=== PATIENT | female | born 1995 | race Caucasian/White ===

== ENCOUNTER 2019-04-21 19:29 | Inpatient (IN) ==
[2019-04-21] MEDS ORDERED: cefTRIAXone 1,000 MG in Water for inj. (sterile) 10 ML IVP ONE (19:44)
[2019-04-21] MEDS ORDERED: Morphine Sulfate 2 MG/ML SYRINGE IVP STA (19:44)
[2019-04-21] MEDS ORDERED: 0.9 % Sodium Chloride 1,000 ML IVC ONE ×3 (19:44→21:01)
[2019-04-21] MEDS ORDERED: Ondansetron 4 MG/2 ML VIAL IVP ONE (19:45)
--- NOTE | 2019-04-21 19:47 | Emergency Department Note ---
Disposition Clinical Impression: Pyelonephritis Sepsis Qualifiers: Sepsis type: sepsis due to unspecified organism Sepsis acute organ dysfunction status: without acute organ dysfunction Qualified Code(s): A41.9 - Sepsis, unspecified organism Disposition: Admitted As Inpatient Condition: Fair Referrals: Larissa Calix CNP [Primary Care Provider] - Forms: ED Satisfaction Letter, Work/School Release Time of Disposition: 21:00 Abdominal Pain HPI - General Chief Complaint: ED Abdominal Pain Stated Complaint: shalini kidney pain Time Seen by Provider: 04/21/19 19:37 Source: patient Nursing Notes Reviewed: Yes Vital Signs Reviewed: Yes - History of Present Illness HPI Narrative: 21-year-old female presents emergency department with concern for bilateral flank pain. Patient states that this been going on for last couple days. She started taken past so [id number] medication because she thought this would help her with her UTI. Patient states that she is unable to eat, has nausea vomiting. Patient reports that the pain is worse on the right side and radiates down into the right lower quadrant abdomen. She does report fever as well as dysuria. Pain Scale: 0 - Related Data Home Medications Medication Instructions Recorded Confirmed Atorvastatin [Lipitor] 10 mg PO DAILY 02/18/18 04/21/19 Lisinopril [Zestril] 20 mg PO DAILY 02/18/18 04/21/19 Butalb/Acetaminophen/Caffeine 1 each PO Q8H PRN 04/21/19 04/21/19 [Fioricet 50-300-40 mg Capsule] hydroCHLOROthiazide 25 mg PO DAILY 04/21/19 04/21/19 [Hydrochlorothiazide] Allergies Allergy/AdvReac Type Severity Reaction Status Date / Time montelukast [From Singulair] Allergy Hives Verified 04/21/19 19:46 All systems ED: reviewed and negative except as stated. 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 Absent: scleral icterus - ENT ENT exam: mucous membranes moist - Neck Neck exam: Present: trachea midline - Chest Chest inspection: Present: symmetric chest wall rise - Respiratory Respiratory exam: Present: normal lung sounds bilaterally. Absent: respiratory distress, accessory muscle use - Cardiovascular Cardiovascular exam: Present: normal rhythm, tachycardia, normal heart sounds - Abdominal Exam Abdominal exam: Present: soft, tenderness. Absent: distention, guarding, r ebound, rigidity Abdominal tenderness: Present: RLQ, diffuse, moderate - Extremities Exam Extremities exam: Present: normal capillary refill - Back Exam Back exam: Present: CVA tenderness (R), CVA tenderness (L) - Neurological Exam Neurological exam: Present: alert, oriented X3 - Psychiatric Psychiatric exam: Present: normal affect, normal mood - Skin Skin exam: Present: warm, dry, intact, normal color. Absent: rash Course Vital Signs Temperature 100.2 F H 04/21/19 19:32 Pulse Rate 143 04/21/19 19:32 Respiratory Rate 16 04/21/19 19:32 Blood Pressure 134/95 04/21/19 19:32 O2 Sat by Pulse Oximetry 97 04/21/19 19:32 Temperature 99.6 F 04/21/19 20:58 Pulse Rate 127 04/21/19 20:58 Respiratory Rate 35 04/21/19 20:58 Blood Pressure 134/84 04/21/19 20:58 O2 Sat by Pulse Oximetry 96 04/21/19 20:58 Oxygen Delivery Oxygen Delivery Room Air Abdominal Pain - [facility] Narrative Medical decision making narrative: 21-year-old female presents emergency department with concern for bilateral flank pain with worsening flank pain on the right and right lower quadrant abdominal pain onset of nausea, vomiting, dysuria. Patient is evidence of urinary tract infection. Subsequent was called immediately she was tachycardic and febrile. Patient has a leukocytosis. She has evidence of urinary tract infection. CT scan of the abdomen and pelvis reveals concerns for pyelonephritis. No evidence of ureteral stones. After administration of fluids, antibiotics, patient admitted. No signs of end organ damage or hypotens ion at this time. Heart rate is responded to fluids. At time of admission, heart rate was 119 bpm. Chest X-Ray 04/21/19 19:38 IMPRESSION: No acute process. D/ / Krupa William MD / Krupa William MD Interpreting Provider: Krupa William MD Abdomen/Pelvis CT 04/21/19 19:46 IMPRESSION: 1. No evidence of renal stones. Inflammatory changes and perinephric stranding as well as mild hydronephrosis of the right kidney although no evidence of ureteric stone or UV junction stone. This may be related to a passed stone or acute pyelonephritis. 2. Normal appendix. 3. Diffuse fatty infiltration of liver. D/ / 04/21/2019 21:12:31 Krupa William MD / tiffanie Interpreting Provider: Krupa William MD - Lab Data Result diagrams: 04/21/19 19:50 04/21/19 19:50 Lab Results 04/21/19 04/21/19 04/21/19 Range/Units 19:47 19:47 19:50 WBC 21.8 H (4.3-11.1) K/mcL RBC 4.58 (3.82-4.97) M/mcL Hgb 13.7 (11.5-15.4) g/dL Hct 39.4 (35.3-44.9) % MCV 86.0 (83.0-100.0) fL MCH 29.9 (28.0-33.3) pg MCHC 34.8 (31.6-35.5) g/dL RDW 12.4 (11.5-14.5) % Plt Count 296 (140-400) K/mcL MPV 8.9 L (9.4-12.4) fL Immature Gran % 0.7 (0-4) % Seg Neutrophils % 73.6 % Lymphocytes % 9.6 % Monocytes % 15.8 % Eosinophils % 0.0 % Basophils % 0.3 % Neutrophils # 16.0 H (1.6-8.9) K/mcL Lymphocytes # 2.1 (0.6-4.6) K/mcL Monocytes # 3.5 H (0.0-1.3) K/mcL Eosinophils # 0.0 (0.0-0.6) K/mcL Basophils # 0.1 (0.0-0.2) K/mcL PT (9.4-12.1) Seconds INR Sodium (136-145) mEq/L Potassium (3.5-5.1) mEq/L Chloride (98-107) mEq/L Carbon Dioxide (23-29) mEq/L BUN (6-20) mg/dL Creatinine (0.60-1.20) mg/dL Est GFR ( Amer) (> 60) Est GFR (Non-Af Amer) (> 60) BUN/Creatinine Ratio (6-26) Glucose (70-105) mg/dL Calculated Osmolality (280-300) Lactic Acid (0.5-2.2) mmol/L Calcium (8.6-10.3) mg/dL Phosphorus (2.7-4.5) mg/dL Magnesium (1.6-2.6) mg/dL Total Bilirubin (0.3-1.0) mg/dL Direct Bilirubin (0.0-0.2) mg/dL Indirect Bilirubin (0.0-1.2) mg/dL AST (13-39) Units/L ALT (7-52) Units/L Alkaline Phosphatase (34-104) Units/L Troponin I (< 0.04) ng/mL Serum Total Protein (6.4-8.9) g/dL Albumin (3.5-5.7) g/dL Globulin (2.4-3.5) g/dL Albumin/Globulin Ratio (1.1-2.2) Urine Color [place] A (Yellow) Urine Clarity Turbid A (Clear) Urine pH 5.5 (5.0-8.0) pH Units Ur Specific [place] 1.019 (1.010-1.025) Urine Protein 100 H (Neg-Trace) mg/dL Urine Glucose (UA) Normal (Normal) mg/dL Urine Ketones Trace H (Negative) mg/dL Urine Blood Moderate H (Negative) Urine Nitrite Positive A (Negative) Urine Bilirubin Small H (Negative) Urine Urobilinogen 2.0 H (Normal) mg/dL Ur Leukocyte Esterase Large H (Negative) Urine Microscopic RBC 5-15 H (0-3) per hpf Urine Microscopic WBC TNTC H (0-3) per hpf Ur Squamous Epith Cells Many H (None-Few) per lpf Urine Bacteria Many H (None-Few) per hpf Hyaline Casts Few (None-Few) per lpf Ur Culture Indicated? YES A (NO) Urine Test Negative (Negative) 04/21/19 04/21/19 04/21/19 Range/Units 19:50 19:50 19:50 WBC (4.3-11.1) K/mcL RBC (3.82-4.97) M/mcL Hgb (11.5-15.4) g/dL Hct (35.3-44.9) % MCV (83.0-100.0) fL MCH (28.0-33.3) pg MCHC (31.6-35.5) g/dL RDW (11.5-14.5) % Plt Count (140-400) K/mcL MPV (9.4-12.4) fL Immature Gran % (0-4) % Seg Neutrophils % % Lymphocytes % % Monocytes % % Eosinophils % % Basophils % % Neutrophils # (1.6-8.9) K/mcL Lymphocytes # (0.6-4.6) K/mcL Monocytes # (0.0-1.3) K/mcL Eosinophils # (0.0-0.6) K/mcL Basophils # (0.0-0.2) K/mcL PT 14.5 H (9.4-12.1) Seconds INR 1.3 Sodium 135 L (136-145) mEq/L Potassium 3.4 L (3.5-5.1) mEq/L Chloride 101 (98-107) mEq/L Carbon Dioxide 23 (23-29) mEq/L BUN 11 (6-20) mg/dL Creatinine 0.81 (0.60-1.20) mg/dL Est GFR ( Amer) > 60 (> 60) Est GFR (Non-Af Amer) > 60 (> 60) BUN/Creatinine Ratio 14 (6-26) Glucose 114 H (70-105) mg/dL Calculated Osmolality 280 (280-300) Lactic Acid 1.5 (0.5-2.2) mmol/L Calcium 9.4 (8.6-10.3) mg/dL Phosphorus 2.4 L (2.7-4.5) mg/dL Magnesium 1.8 (1.6-2.6) mg/dL Total Bilirubin 1.6 H (0.3-1.0) mg/dL Direct Bilirubin 0.4 H (0.0-0.2) mg/dL Indirect Bilirubin 1.2 (0.0-1.2) mg/dL AST 14 (13-39) Units/L ALT 23 (7-52) Units/L Alkaline Phosphatase 79 (34-104) Units/L Troponin I < 0.03 (< 0.04) ng/mL Serum Total Protein 8.3 (6.4-8.9) g/dL Albumin 4.7 (3.5-5.7) g/dL Globulin 3.6 H (2.4-3.5) g/dL Albumin/Globulin Ratio 1.3 (1.1-2.2) Urine Color (Yellow) Urine Clarity (Clear) Urine pH (5.0-8.0) pH Units Ur Specific [place] (1.010-1.025) Urine Protein (Neg-Trace) mg/dL Urine Glucose (UA) (Normal) mg/dL Urine Ketones (Negative) mg/dL Urine Blood (Negative) Urine Nitrite (Negative) Urine Bilirubin (Negative) Urine Urobilinogen (Normal) mg/dL Ur Leukocyte Esterase (Negative) Urine Microscopic RBC (0-3) per hpf Urine Microscopic WBC (0-3) per hpf Ur Squamous Epith Cells (None-Few) per lpf Urine Bacteria (None-Few) per hpf Hyaline Casts (None-Few) per lpf Ur Culture Indicated? (NO) Urine Test (Negative) - EKG Data EKG attestation: Yes I reviewed and interpreted this EKG. EKG results narrative: 1950 Heart rate 144 bpm, NV interval 130 ms, QRS duration 85 ms, QTC 431 ms, normal axis. Sinus tachycardia with mild ST segment depressions in the inferior leads secondary to rate.
--- NOTE | 2019-04-21 19:47 | Emergency Department Note ---
Disposition Clinical Impression: Pyelonephritis Sepsis Qualifiers: Sepsis type: sepsis due to unspecified organism Sepsis acute organ dysfunction status: without acute organ dysfunction Qualified Code(s): A41.9 - Sepsis, unspecified organism Disposition: Admitted As Inpatient Condition: Fair Referrals: Larissa Calix CNP [Primary Care Provider] - Forms: ED Satisfaction Letter, Work/School Release Time of Disposition: 21:12 General Adult HPI - General Chief complaint: ED Abdominal Pain Stated complaint: shalini kidney pain Time Seen by Provider: 04/21/19 19:37 Source: patient Limitations: no limitations Nursing Notes Reviewed: Yes Vital Signs Reviewed: Yes - History of Present Illness Pain Scale: 0 - Related Data Home Medications Medication Instructions Recorded Confirmed Atorvastatin [Lipitor] 10 mg PO DAILY 02/18/18 04/21/19 Lisinopril [Zestril] 20 mg PO DAILY 02/18/18 04/21/19 Butalb/Acetaminophen/Caffeine 1 each PO Q8H PRN 04/21/19 04/21/19 [Fioricet 50-300-40 mg Capsule] hydroCHLOROthiazide 25 mg PO DAILY 04/21/19 04/21/19 [Hydrochlorothiazide] Allergies Allergy/AdvReac Type Severity Reaction Status Date / Time montelukast [From Singulair] Allergy Hives Verified 04/21/19 19:46 Past Medical History - Past Medical History Medical history: Reports: hypertension Surgical history: Reports: no surgical history Psychiatric history: Reports: no psych history 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 RADIOLOGY CT TECHNOLOGIST history - Social History Smoking Status: Never smoker Smokeless Tobacco Status: No Alcohol use: Reports: none Drug use: Reports: none Physical Exam - General Limitations: no limitations General appearance: alert Course Vital Signs Temperature 100.2 F H 04/21/19 19:32 Pulse Rate 143 04/21/19 19:32 Respiratory Rate 16 04/21/19 19:32 Blood Pressure 134/95 04/21/19 19:32 O2 Sat by Pulse Oximetry 97 04/21/19 19:32 Temperature 99.6 F 04/21/19 20:58 Pulse Rate 127 04/21/19 20:58 Respiratory Rate 35 04/21/19 20:58 Blood Pressure 134/84 04/21/19 20:58 O2 Sat by Pulse Oximetry 96 04/21/19 20:58 Oxygen Delivery Oxygen Delivery Room Air Medical Decision Making - Lab Data Result diagrams: 04/21/19 19:50 04/21/19 19:50 Lab Results 04/21/19 04/21/19 04/21/19 Range/Units 19:47 19:47 19:50 WBC 21.8 H (4.3-11.1) K/mcL RBC 4.58 (3.82-4.97) M/mcL Hgb 13.7 (11.5-15.4) g/dL Hct 39.4 (35.3-44.9) % MCV 86.0 (83.0-100.0) fL MCH 29.9 (28.0-33.3) pg MCHC 34.8 (31.6-35.5) g/dL RDW 12.4 (11.5-14.5) % Plt Count 296 (140-400) K/mcL MPV 8.9 L (9.4-12.4) fL Immature Gran % 0.7 (0-4) % Seg Neutrophils % 73.6 % Lymphocytes % 9.6 % Monocytes % 15.8 % Eosinophils % 0.0 % Basophils % 0.3 % Neutrophils # 16.0 H (1.6-8.9) K/mcL Lymphocytes # 2.1 (0.6-4.6) K/mcL Monocytes # 3.5 H (0.0-1.3) K/mcL Eosinophils # 0.0 (0.0-0.6) K/mcL Basophils # 0.1 (0.0-0.2) K/mcL PT (9.4-12.1) Seconds INR Sodium (136-145) mEq/L Potassium (3.5-5.1) mEq/L Chloride (98-107) mEq/L Carbon Dioxide (23-29) mEq/L BUN (6-20) mg/dL Creatinine (0.60-1.20) mg/dL Est GFR ( Amer) (> 60) Est GFR (Non-Af Amer) (> 60) BUN/Creatinine Ratio (6-26) Glucose (70-105) mg/dL Calculated Osmolality (280-300) Lactic Acid (0.5-2.2) mmol/L Calcium (8.6-10.3) mg/dL Phosphorus (2.7-4.5) mg/dL Magnesium (1.6-2.6) mg/dL Total Bilirubin (0.3-1.0) mg/dL Direct Bilirubin (0.0-0.2) mg/dL Indirect Bilirubin (0.0-1.2) mg/dL AST (13-39) Units/L ALT (7-52) Units/L Alkaline Phosphatase (34-104) Units/L Troponin I (< 0.04) ng/mL Serum Total Protein (6.4-8.9) g/dL Albumin (3.5-5.7) g/dL Globulin (2.4-3.5) g/dL Albumin/Globulin Ratio (1.1-2.2) Urine Color [place] A (Yellow) Urine Clarity Turbid A (Clear) Urine pH 5.5 (5.0-8.0) pH Units Ur Specific [place] 1.019 (1.010-1.025) Urine Protein 100 H (Neg-Trace) mg/dL Urine Glucose (UA) Normal (Normal) mg/dL Urine Ketones Trace H (Negative) mg/dL Urine Blood Moderate H (Negative) Urine Nitrite Positive A (Negative) Urine Bilirubin Small H (Negative) Urine Urobilinogen 2.0 H (Normal) mg/dL Ur Leukocyte Esterase Large H (Negative) Urine Microscopic RBC 5-15 H (0-3) per hpf Urine Microscopic WBC TNTC H (0-3) per hpf Ur Squamous Epith Cells Many H (None-Few) per lpf Urine Bacteria Many H (None-Few) per hpf Hyaline Casts Few (None-Few) per lpf Ur Culture Indicated? YES A (NO) Urine Test Negative (Negative) 04/21/19 04/21/19 04/21/19 Range/Units 19:50 19:50 19:50 WBC (4.3-11.1) K/mcL RBC (3.82-4.97) M/mcL Hgb (11.5-15.4) g/dL Hct (35.3-44.9) % MCV (83.0-100.0) fL MCH (28.0-33.3) pg MCHC (31.6-35.5) g/dL RDW (11.5-14.5) % Plt Count (140-400) K/mcL MPV (9.4-12.4) fL Immature Gran % (0-4) % Seg Neutrophils % % Lymphocytes % % Monocytes % % Eosinophils % % Basophils % % Neutrophils # (1.6-8.9) K/mcL Lymphocytes # (0.6-4.6) K/mcL Monocytes # (0.0-1.3) K/mcL Eosinophils # (0.0-0.6) K/mcL Basophils # (0.0-0.2) K/mcL PT 14.5 H (9.4-12.1) Seconds INR 1.3 Sodium 135 L (136-145) mEq/L Potassium 3.4 L (3.5-5.1) mEq/L Chloride 101 (98-107) mEq/L Carbon Dioxide 23 (23-29) mEq/L BUN 11 (6-20) mg/dL Creatinine 0.81 (0.60-1.20) mg/dL Est GFR ( Amer) > 60 (> 60) Est GFR (Non-Af Amer) > 60 (> 60) BUN/Creatinine Ratio 14 (6-26) Glucose 114 H (70-105) mg/dL Calculated Osmolality 280 (280-300) Lactic Acid 1.5 (0.5-2.2) mmol/L Calcium 9.4 (8.6-10.3) mg/dL Phosphorus 2.4 L (2.7-4.5) mg/dL Magnesium 1.8 (1.6-2.6) mg/dL Total Bilirubin 1.6 H (0.3-1.0) mg/dL Direct Bilirubin 0.4 H (0.0-0.2) mg/dL Indirect Bilirubin 1.2 (0.0-1.2) mg/dL AST 14 (13-39) Units/L ALT 23 (7-52) Units/L Alkaline Phosphatase 79 (34-104) Units/L Troponin I < 0.03 (< 0.04) ng/mL Serum Total Protein 8.3 (6.4-8.9) g/dL Albumin 4.7 (3.5-5.7) g/dL Globulin 3.6 H (2.4-3.5) g/dL Albumin/Globulin Ratio 1.3 (1.1-2.2) Urine Color (Yellow) Urine Clarity (Clear) Urine pH (5.0-8.0) pH Units Ur Specific [place] (1.010-1.025) Urine Protein (Neg-Trace) mg/dL Urine Glucose (UA) (Normal) mg/dL Urine Ketones (Negative) mg/dL Urine Blood (Negative) Urine Nitrite (Negative) Urine Bilirubin (Negative) Urine Urobilinogen (Normal) mg/dL Ur Leukocyte Esterase (Negative) Urine Microscopic RBC (0-3) per hpf Urine Microscopic WBC (0-3) per hpf Ur Squamous Epith Cells (None-Few) per lpf Urine Bacteria (None-Few) per hpf Hyaline Casts (None-Few) per lpf Ur Culture Indicated? (NO) Urine Test (Negative) Critical Care Time Critical Care Time: Yes Total Critical Care Time: 40 Attestation: Critical care performed: Time is exclusive of separately billable procedures. Time includes: direct patient care, patient reassessment, coordination of patient care, interpretation of data (laboratory data, radiology data, and respiratory data), review of patient's medical records, medical consultation and documentation of patient care. Procedures included in critical care time: Procedures excluded from critical care time: Attestation Statement - Attestation Attestation: I examined this patient and my medical decision-making was reviewed with the Resident Physician. I agree with the documented findings, disposition and treatment plan as described except to the extent set forth below. Patient to the ED with a chief complaint of a UTI. Patient states she took some [id number] medication but she is worse. Nausea vomiting. Pain across her back. On examination she is febrile and tachycardic. No abdominal tenderness. Bilateral CVA tenderness. Plan. Sepsis alert was called. A urinalysis was collected in a timely fashion. Labs being drawn at this time. We will check CT abdomen pelvis to rule out ureteral obstruction. Starting IV antibiotics promptly. Patient feeling better. Heart rate improved. She is provided IV hydration and IV antibiotics. She does meet sepsis criteria without shock. CT scan does not show any obstructive ureteral stones. She is admitted to the hospitalist service for pyelonephritis. Chest X-Ray 04/21/19 19:38 IMPRESSION: No acute process. D/ / Krupa William MD / Krupa William MD Interpreting Provider: Krupa William MD Abdomen/Pelvis CT 04/21/19 19:46 IMPRESSION: 1. No evidence of renal stones. Inflammatory changes and perinephric stranding as well as mild hydronephrosis of the right kidney although no evidence of ureteric stone or UV junction stone. This may be related to a passed stone or acute pyelonephritis. 2. Normal appendix. 3. Diffuse fatty infiltration of liver. D/ / Krupa William MD / Krupa William MD Interpreting Provider: Krupa William MD
[2019-04-21 20:07] LABS: Bilirubin,Urine Small (Negative); Blood,Urine Moderate (Negative); Clarity,Urine Turbid (Clear); Color,Urine Orange (Yellow); Glucose,Urine (UA) Normal (Normal); Ketones,Urine Trace mg/dL (Negative); Leukocyte Esterase,Urine Large (Negative); Nitrite,Urine Positive (Negative); PH,Urine 5.5 pH Units (5.0-8.0); Protein,Urine 100 mg/dL (Neg-Trace); Specific Gravity,Urine 1.019 (1.010-1.025)
[2019-04-21 20:14] LABS: Bacteria,Urine Many per hpf (None-Few); Hyaline Casts,Urine Few per lpf (None-Few); Squamous Epithelial Cell,Urine Many per lpf (None-Few); WBC,Urine TNTC per hpf (0-3)
[2019-04-21 20:20] LABS: Basophils # 0.1 K/mcL (0.0-0.2); Basophils % 0.3 %; Hematocrit 39.4 % (35.3-44.9); Hemoglobin 13.7 g/dL (11.5-15.4); Immature Granulocytes % 0.7 % (0-4); Lymphocytes # 2.1 K/mcL (0.6-4.6); Lymphocytes % 9.6 %; Mean Corpuscular HGB Conc 34.8 g/dL (31.6-35.5); Mean Corpuscular Hemoglobin 29.9 pg (28.0-33.3); Mean Platelet Volume 8.9 fL (9.4-12.4); Monocytes # 3.5 K/mcL (0.0-1.3); Monocytes % 15.8 %; Platelet Count 296 K/mcL (140-400); Red Blood Count 4.58 M/mcL (3.82-4.97); Red Cell Distribution Width 12.4 % (11.5-14.5); Segmented Neutrophils % 73.6 %; White Blood Count 21.8 K/mcL (4.3-11.1)
[2019-04-21 20:27] LABS: INR 1.3; Prothrombin Time 14.5 Seconds (9.4-12.1)
[2019-04-21 20:37] LABS: Alanine Aminotransferase 23 Units/L (7-52); Albumin 4.7 g/dL (3.5-5.7); Albumin/Globulin Ratio 1.3 (1.1-2.2); Alkaline Phosphatase 79 Units/L (34-104); Aspartate Amino Transferase 14 Units/L (13-39); BUN/Creatinine Ratio 14 (6-26); Bilirubin,Direct 0.4 mg/dL (0.0-0.2); Bilirubin,Indirect 1.2 mg/dL (0.0-1.2); Bilirubin,Total 1.6 mg/dL (0.3-1.0); Blood Urea Nitrogen 11 mg/dL (6-20); Calcium 9.4 mg/dL (8.6-10.3); Carbon Dioxide 23 mEq/L (23-29); Chloride 101 mEq/L (98-107); Globulin 3.6 g/dL (2.4-3.5); Glucose 114 mg/dL (70-105); Magnesium 1.8 mg/dL (1.6-2.6); Osmolality,Calculated 280 (280-300); Phosphorous 2.4 mg/dL (2.7-4.5); Potassium 3.4 mEq/L (3.5-5.1); Sodium 135 mEq/L (136-145); Total Protein 8.3 g/dL (6.4-8.9); Troponin I < 0.03 ng/mL (< 0.04); eGFR For African Americans > 60 (> 60); eGFR For Non-African Americans > 60 (> 60)
[2019-04-22] MEDS ORDERED: Naloxone 0.4 MG/ML INJ IVP PRN (00:02)
[2019-04-22] MEDS: Ketorolac 30 MG/ML VIAL IVP PRN ×3 (00:47→17:51)
--- NOTE | 2019-04-22 05:31 | Internal Med History&Physical ---
Date of Encounter: 04/22/19 Time of Encounter: 04:04 Internal Medicine - H&P: HPI Chief complaint: Pyelonephritis Admitted From: Emergency Dept Plans for Post Hospital Care: Home History of present illness: Ms. Mcfarlane is a 23 year old female Patient presented to emergency department with right-sided flank pain that r adiated to her groin. She states the pain started 3 days ago, and has progressively worsened. She denies history of kidney stones, but has had urinary tract infections in the past. She has never had pain like this before however. She has had some nausea and vomiting as well, particularly with ex ertion. She came to emergency department for further evaluation. Resume her vital signs: Patient's temperature was 100.2, pulse 143, respiratory rate 16, blood pressure 134/95, O2 saturation 97% on room air CBC notable for a white count of 21.8. BMP: Sodium 135, potassium 3.4. Glucose 114 Lactic acid 1.5 Phosphorus 2.4 Magnesium 1.8 Total bilirubin 1.6 Initial troponin undetectable Chest x-ray: No acute process Abdominal CT IMPRESSION: 1. No evidence of renal stones. Inflammatory changes and perinephric stranding as well as mild hydronephrosis of the right kidney although no evidence of ureteric stone or UV junction stone. This may be related to a passed stone or acute pyelonephritis. 2. Normal appendix. 3. Diffuse fatty infiltration of liver. In the emergency room patient had urine and blood cultures drawn. She was given ceftriaxone and a total of 3 L of IV fluids. She is also given a total of 8 mg of IV morphine and 8 mg of Zofran. She was admitted to the hospital for further management. Plan my evaluation, patient is resting comfortably in the hospital bed in no acute distress. She denies chest pain, diarrhea and constipation. She has had right-sided flank and lower abdominal to groin pain with associated nausea and vomiting. Upon arrival to the floor her pain was still uncontrolled, but she responded well to 30 mg of IV Toradol. She is much more comfortable now. She denies significant past family medical history. She is full code. Her is at bedside. Past Med Surg Social Fam HX - Past Medical History Medical history: hypertension Psychiatric history: no psych history - Past Surgical History Surgical History: no surgical history - Social History Smoking Status: Never smoker Smokeless Tobacco Status: No Alcohol use: none Drug use: none Internal Medicine - H&P: Meds Atorvastatin [Lipitor] 10 mg PO DAILY 02/18/18 [History] Lisinopril [Zestril] 20 mg PO DAILY 02/18/18 [History] Butalb/Acetaminophen/Caffeine [Fioricet 50-300-40 mg Capsule] 1 each PO Q8H PRN 04/21/19 [History] hydroCHLOROthiazide [Hydrochlorothiazide] 25 mg PO DAILY 04/21/19 [History] Allergy/AdvReac Type Severity Reaction Status Date / Time montelukast [From Singulair] Allergy Hives Verified 04/21/19 19:46 All Systems PM: A 10-system review of systems was performed and is negative for pertinent findin gs except as documented above in the HPI. - Constitutional Vitals: Temp Pulse Resp BP Pulse Ox 98.2 F 117 17 110/75 99 04/22/19 03:06 04/22/19 03:06 04/22/19 03:06 04/22/19 03:06 04/22/19 03:06 General appearance: Present: cooperative, A&O X 3, pleasant, no acute distress, answers questions appropriately Exam: - - Head Head exam: Present: normal inspection - Eye Eye exam: Present: EOMI, normal appearance - Respiratory Respiratory exam: Present: CTAB. Absent: rales, respiratory distress, rhonchi, wheezes - Cardiovascular Cardiovascular exam: Present: RRR. Absent: diastolic murmur, systolic murmur - GI/Abdominal GI/Abdominal exam: Present: normal bowel sounds, soft, tenderness Additional comments: Right-sided flank and abdominal tenderness with palpation - Extremities Exam Extremities exam: Present: warm, radial pulses palpable and symmetrical. Absent: calf tenderness, pedal edema, tenderness - Neurological Exam Neurological exam: Present: no focal deficits, strengths equal and symetr throughout. Absent: motor sensory deficit, facial droop, speech deficit - Skin Skin exam: Present: dry, normal color, warm Internal Med - H&P Results - Labs CBC & Chem 7: 04/21/19 19:50 04/21/19 19:50 Labs: Short CBC 04/21/19 Range/Units 19:50 WBC 21.8 H (4.3-11.1) K/mcL Hgb 13.7 (11.5-15.4) g/dL Hct 39.4 (35.3-44.9) % Plt Count 296 (140-400) K/mcL Neutrophils # 16.0 H (1.6-8.9) K/mcL BMP 04/21/19 19:50 Sodium 135 L Potassium 3.4 L Chloride 101 Carbon Dioxide 23 BUN 11 Creatinine 0.81 Glucose 114 H Calcium 9.4 Cardiac Enzymes 04/21/19 Range/Units 19:50 Troponin I < 0.03 (< 0.04) ng/mL Liver Function 04/21/19 Range/Units 19:50 Total Bilirubin 1.6 H (0.3-1.0) mg/dL Direct Bilirubin 0.4 H (0.0-0.2) mg/dL AST 14 (13-39) Units/L ALT 23 (7-52) Units/L Alkaline Phosphatase 79 (34-104) Units/L Albumin 4.7 (3.5-5.7) g/dL Urine 04/21/19 Range/Units 19:47 Urine Color [place] A (Yellow) Urine Clarity Turbid A (Clear) Urine pH 5.5 (5.0-8.0) pH Units Ur Specific [place] 1.019 (1.010-1.025) Urine Protein 100 H (Neg-Trace) mg/dL Urine Glucose (UA) Normal (Normal) mg/dL - Impressions ITS Impressions Chest X-Ray 04/21/19 19:38 IMPRESSION: No acute process. D/ / Krupa William MD / Krupa William MD Interpreting Provider: Krupa William MD Abdomen/Pelvis CT 04/21/19 19:46 IMPRESSION: 1. No evidence of renal stones. Inflammatory changes and perinephric stranding as well as mild hydronephrosis of the right kidney although no evidence of ureteric stone or UV junction stone. This may be related to a passed stone or acute pyelonephritis. 2. Normal appendix. 3. Diffuse fatty infiltration of liver. D/ / 04/21/2019 21:12:31 Krupa William MD / [email or web address] Interpreting Provider: Krupa William MD - Assessment and Plan (1) Sepsis Current Visit: Yes Status: Acute Assessment and plan: Patient's vital signs initially demonstrated elevated temperature and pulse. She also elevated white count and a source being her urinary tract. Her body temperature has improved to 98.2, and her pulse is also improved but still elevated at 117. Lactic acid elevated at 1.5 Continue IV fluid hydration Treating pyelonephritis as below Qualifiers: Sepsis type: sepsis due to unspecified organism Sepsis acute organ dysfunction status: without acute organ dysfunction Qualified Code(s): A41.9 - Sepsis, unspecified organism (2) Pyelonephritis Current Visit: Yes Status: Acute Assessment and plan: Patient's abdominal CT demonstrated inflammatory changes and perinephric stranding and hydronephrosis of the right kidney. There is no obstruction seen. Started on ceftriaxone, blood and urine cultures obtained. Follow-up blood and urine cultures Continue IV ceftriaxone IV Toradol for pain IV fluid hydration (3) Hypophosphatemia Current Visit: Yes Status: Acute Assessment and plan: Mildly low phosphorus level at 2.4. Replete Repeat phosphorus level (4) Nausea and vomiting Current Visit: Yes Status: Acute Assessment and plan: Now improved, patient responded well to IV Zofran. Continue IV Zofran as needed Qualifiers: Vomiting type: unspecified Vomiting Intractability: non-intractable Qualified Code(s): R11.2 - Nausea with vomiting, unspecified (5) Elevated bilirubin Current Visit: Yes Status: Acute Assessment and plan: Patient's bilirubin elevated at 1.6. Patient's other liver enzymes within normal limits. She denies history of liver disease. No jaundice on exam. Repeat a.m. labs Continue to monitor (6) DVT prophylaxis Current Visit: Yes Status: Acute Assessment and plan: SCDs - Time Spent With Patient Total time spent is greater than 50% in coordination of care (as documented) at patient's floor/unit and/or counseling patient: Greater than 35 minutes
[2019-04-22 05:52] LABS: Hematocrit 35.7 % (35.3-44.9); Hemoglobin 12.3 g/dL (11.5-15.4); Mean Corpuscular HGB Conc 34.5 g/dL (31.6-35.5); Mean Corpuscular Hemoglobin 29.8 pg (28.0-33.3); Mean Corpuscular Volume 86.4 fL (83.0-100.0); Mean Platelet Volume 8.6 fL (9.4-12.4); Platelet Count 200 K/mcL (140-400); Red Blood Count 4.13 M/mcL (3.82-4.97); Red Cell Distribution Width 12.7 % (11.5-14.5); White Blood Count 19.5 K/mcL (4.3-11.1)
[2019-04-22 06:10] LABS: BUN/Creatinine Ratio 10 (6-26); Blood Urea Nitrogen 9 mg/dL (6-20); Calcium 8.2 mg/dL (8.6-10.3); Carbon Dioxide 25 mEq/L (23-29); Chloride 106 mEq/L (98-107); Glucose 121 mg/dL (70-105); Osmolality,Calculated 286 (280-300); Potassium 3.8 mEq/L (3.5-5.1); Sodium 138 mEq/L (136-145); eGFR For African Americans > 60 (> 60); eGFR For Non-African Americans > 60 (> 60)
[2019-04-22 06:11] LABS: Albumin 3.7 g/dL (3.5-5.7); Albumin/Globulin Ratio 1.5 (1.1-2.2); Bilirubin,Direct 0.7 mg/dL (0.0-0.2); Bilirubin,Indirect 1.2 mg/dL (0.0-1.2); Bilirubin,Total 1.9 mg/dL (0.3-1.0); Globulin 2.5 g/dL (2.4-3.5); Total Protein 6.2 g/dL (6.4-8.9)
[2019-04-22] MEDS: Acetaminophen 325 MG TABLET PO PRN ×2 (06:18→16:27)
[2019-04-22] MEDS: 0.9 % Sodium Chloride 1,000 ML IVC SCH ×4 (06:19→23:20)
[2019-04-22] MEDS: Ondansetron 4 MG/2 ML VIAL IVP PRN ×3 (07:35→23:20)
[2019-04-22] MEDS ORDERED: cefTRIAXone 1,000 MG in Water for inj. (sterile) 10 ML IVP ONE (08:54)
[2019-04-22] MEDS ORDERED: cefTRIAXone 1,000 MG in Water for inj. (sterile) 10 ML IVP SCH (09:00)
--- NOTE | 2019-04-22 11:35 | Event Note ---
Date of Encounter: 04/22/19 Time of Encounter: 09:45 History of physical noted. Patient was seen this morning. She was admitted for pyelonephritis with right CVA tenderness and being managed with IV fluids, Rocephin and Tylenol. Urine cultures are pending. She also has a positive Corrales sign and ultrasound of the abdomen is ordered for tomorrow. She is still febrile and has tachycardia. Her leukocytosis is improving and recheck CBC tomorrow.
[2019-04-22 11:58] LABS: Acinetobacter baumannii by PCR Not Detected (Not Detect); Candida albicans by PCR Not Detected (Not Detect); Candida glabrata by PCR Not Detected (Not Detect); Candida krusei by PCR Not Detected (Not Detect); Candida parapsilosis by PCR Not Detected (Not Detect); Candida tropicalis by PCR Not Detected (Not Detect); Enterobacter cloacae Cmplx PCR Not Detected (Not Detect); Enterococcus by PCR Not Detected (Not Detect); Escherichia coli by PCR DETECTED (Not Detect); Klebsiella oxytoca by PCR Not Detected (Not Detect); Klebsiella pneumoniae by PCR Not Detected (Not Detect); Proteus by PCR Not Detected (Not Detect); Pseudomonas aeruginosa by PCR Not Detected (Not Detect); Serratia marcescens by PCR Not Detected (Not Detect); Staphylococcus aureus by PCR Not Detected (Not Detect); Staphylococcus by PCR Not Detected (Not Detect); Streptococcus agalactiae(B)PCR Not Detected (Not Detect); Streptococcus by PCR Not Detected (Not Detect); Streptococcus pneumoniae PCR Not Detected (Not Detect); Streptococcus pyogenes (A) PCR Not Detected (Not Detect); blaKPC Carbapenem-Resist Gene Not Detected (Not Detect); mecA Methicillin-Resist Gene Not Detected (Not Detect); vanA/B Vancomycin-Resist Genes Not Detected (Not Detect)
--- NOTE | 2019-04-22 16:09 | Electrocardiograph Report ---
[address] [address] Test Date: 2019-04-21 Pat Name: Ana Mcfarlane Department: EXAM3 Room: 3A23 Gender: F Cake Icer: : 1995 Requested By: Toney Cho Order Number: [id number] Reading MD: Nimesh Blanchard Measurements Intervals [place] Rate: 144 P: 78 NV: 130 QRS: 8 QRSD: 85 T: -41 QT: 278 QTc: 431 Interpretive Statements Sinus tachycardia Probable left atrial enlargement Borderline repolarization abnormality Electronically Signed On 04-22-2019 16:07:46 EDT by Nimesh Blanchard
[2019-04-22] MEDS ORDERED: Melatonin 3 MG TABLET PO PRN (23:52)
[2019-04-23] MEDS: Ketorolac 30 MG/ML VIAL IVP PRN ×4 (03:23→22:06)
[2019-04-23] MEDS: Acetaminophen 325 MG TABLET PO PRN ×2 (05:03→20:01)
[2019-04-23 05:24] LABS: Hematocrit 29.6 % (35.3-44.9); Mean Corpuscular HGB Conc 34.5 g/dL (31.6-35.5); Mean Corpuscular Hemoglobin 29.7 pg (28.0-33.3); Mean Corpuscular Volume 86.3 fL (83.0-100.0); Mean Platelet Volume 9.3 fL (9.4-12.4); Platelet Count 164 K/mcL (140-400); Red Blood Count 3.43 M/mcL (3.82-4.97); Red Cell Distribution Width 12.7 % (11.5-14.5); White Blood Count 15.6 K/mcL (4.3-11.1)
[2019-04-23 05:25] LABS: Hemoglobin 10.2 g/dL (11.5-15.4)
[2019-04-23 05:49] LABS: Albumin 3.3 g/dL (3.5-5.7); Albumin/Globulin Ratio 1.2 (1.1-2.2); Bilirubin,Direct 0.6 mg/dL (0.0-0.2); Bilirubin,Indirect 0.8 mg/dL (0.0-1.2); Bilirubin,Total 1.4 mg/dL (0.3-1.0); Globulin 2.7 g/dL (2.4-3.5)
[2019-04-23 05:50] LABS: BUN/Creatinine Ratio 9 (6-26); Blood Urea Nitrogen 6 mg/dL (6-20); Carbon Dioxide 21 mEq/L (23-29); Chloride 105 mEq/L (98-107); Glucose 116 mg/dL (70-105); Osmolality,Calculated 283 (280-300); Sodium 137 mEq/L (136-145); eGFR For African Americans > 60 (> 60); eGFR For Non-African Americans > 60 (> 60)
[2019-04-23] MEDS: Ondansetron 4 MG/2 ML VIAL IVP PRN ×2 (07:27→15:57)
[2019-04-23] MEDS: cefTRIAXone 2,000 MG in Water for inj. (sterile) 20 ML IVP SCH (07:27)
[2019-04-23] MEDS: 0.9 % Sodium Chloride 1,000 ML IVC SCH ×2 (10:22→20:11)
--- NOTE | 2019-04-23 11:52 | Internal Med Progress Note ---
Hospitalist Progress Note - Encounter Date of Encounter: 04/23/19 Time of Encounter: 11:51 - Subjective Interval History: Patient was seen and examined at bedside. Patient reports of right-sided upper quadrant pain with right-sided flank pain. Pain is 5-6 out of 10 in severity, achy, nonradiating, and without any other limiting and relieving factors. Patient denied any nausea and vomiting. Patient reports fever overnight. But from this he denied any acute issues and concerns. - Exam Vitals: Temp Pulse Resp BP Pulse Ox 98.1 F 95 15 127/84 97 04/23/19 10:39 04/23/19 10:39 04/23/19 10:39 04/23/19 10:39 04/23/19 10:39 Exam: General: A & O 3, In no acute distress HENNT: PERRLA. Head atraumatic and makes supple CVS S1 and S2 regular, no murmur RS: Clear to air entry bilaterally, no wheeze, no crackles Abdomen: [id number] tenderness on the right upper quadrant. Extremities: No cyanosis, clubbing, and edema Neurology: Cranial II-XII normal. Motor strength 5/5 bilaterally. Sensation intact - Assessment and Plan (1) Pyelonephritis Current Visit: Yes Status: Acute Assessment and Plan: We will continue IV hydration, IV Rocephin, and IV pain medication. Urine culture final report to Escherichia coli, which is sensitive to Rocephin. We will continue Rocephin.. (2) Sepsis Current Visit: Yes Status: Acute Assessment and Plan: - Continue IV fluid hydration - Treating pyelonephritis as above - Blood culture X 2 on 04/21/19 showed gm negative rods on preliminary report. We will wait for final report - Blood culture X 2 on 04/22/19 and negative on preliminary report. Will await final report (3) RUQ abdominal pain Current Visit: Yes Status: Acute Assessment and Plan: Reports of right upper quadrant abdominal pain. Patient also reports of right flank pain. On admission patient's bilirubin was elevated. Ultrasound abdomen done today. Ultrasound abdomen was negative for any cholecystitis, and any evidence of bile duct obstruction. Patient also complaining of right flank pain. Possibly likely due to right-sided pyelonephritis. We will continue to monitor. Continue pain management (4) Elevated bilirubin Current Visit: Yes Status: Acute Assessment and Plan: Patient also complaining of right upper quadrant pain. Ultrasound abdomen within normal limit. (5) DVT prophylaxis Current Visit: Yes Status: Acute Assessment and Plan: SCDs - Time Spent with Patient Total time spent is greater than 50% in coordination of care (as documented) at patient's floor/unit and/or counseling patient: 25 - 35 minutes Plan of Care Discussed with: patient Internal Medicine: Result - Labs CBC & Chem 7: 04/23/19 04:58 04/23/19 04:58 Labs: Short CBC 04/23/19 Range/Units 04:58 WBC 15.6 H (4.3-11.1) K/mcL Hgb 10.2 L D (11.5-15.4) g/dL Hct 29.6 L (35.3-44.9) % Plt Count 164 (140-400) K/mcL BMP 04/23/19 04:58 Sodium 137 Potassium 3.0 L Chloride 105 Carbon Dioxide 21 L BUN 6 Creatinine 0.67 Glucose 116 H Calcium 8.0 L Liver Function 04/23/19 Range/Units 04:58 Total Bilirubin 1.4 H (0.3-1.0) mg/dL Direct Bilirubin 0.6 H (0.0-0.2) mg/dL AST 12 L (13-39) Units/L ALT 16 (7-52) Units/L Alkaline Phosphatase 74 (34-104) Units/L Albumin 3.3 L (3.5-5.7) g/dL - ABG Interpretation ABG results: PT/INR, D-dimer PT 14.5 Seconds (9.4-12.1) H 04/21/19 19:50 - Impressions Impressions Abdomen Ultrasound 04/23/19 09:00 IMPRESSION: Fatty liver. No focal disease. The right kidney has a normal appearance. D/ /23/2019 10:07:46 Krupa William MD / wes Interpreting Provider: Krupa William MD Consult Discharge Plan - Plan Referrals: Larissa Calix, SLUSHER OPERATOR [Primary Care Provider] - (2) Sepsis Qualifiers: Sepsis type: sepsis due to unspecified organism Sepsis acute organ dysfunction status: without acute organ dysfunction Qualified Code(s): A41.9 - Sepsis, unspecified organism
[2019-04-24] MEDS: Ondansetron 4 MG/2 ML VIAL IVP PRN (01:56)
[2019-04-24 03:38] LABS: Basophils % 0.3 %; Eosinophils % 0.4 %; Hematocrit 31.4 % (35.3-44.9); Hemoglobin 10.7 g/dL (11.5-15.4); Immature Granulocytes % 0.5 % (0-4); Lymphocytes # 1.3 K/mcL (0.6-4.6); Lymphocytes % 11.8 %; Mean Corpuscular HGB Conc 34.1 g/dL (31.6-35.5); Mean Corpuscular Hemoglobin 29.5 pg (28.0-33.3); Mean Corpuscular Volume 86.5 fL (83.0-100.0); Mean Platelet Volume 9.5 fL (9.4-12.4); Monocytes # 1.3 K/mcL (0.0-1.3); Monocytes % 12.7 %; Neutrophils # 7.9 K/mcL (1.6-8.9); Platelet Count 195 K/mcL (140-400); Red Blood Count 3.63 M/mcL (3.82-4.97); Red Cell Distribution Width 12.8 % (11.5-14.5); Segmented Neutrophils % 74.3 %; White Blood Count 10.6 K/mcL (4.3-11.1)
[2019-04-24] MEDS: Acetaminophen 325 MG TABLET PO PRN ×2 (03:49→23:50)
[2019-04-24 03:56] LABS: Alanine Aminotransferase 17 Units/L (7-52); Albumin 3.4 g/dL (3.5-5.7); Albumin/Globulin Ratio 1.1 (1.1-2.2); Alkaline Phosphatase 76 Units/L (34-104); Aspartate Amino Transferase 14 Units/L (13-39); BUN/Creatinine Ratio 9 (6-26); Bilirubin,Total 0.7 mg/dL (0.3-1.0); Blood Urea Nitrogen 7 mg/dL (6-20); Calcium 8.5 mg/dL (8.6-10.3); Carbon Dioxide 22 mEq/L (23-29); Chloride 106 mEq/L (98-107); Globulin 3.1 g/dL (2.4-3.5); Glucose 105 mg/dL (70-105); Osmolality,Calculated 280 (280-300); Potassium 3.2 mEq/L (3.5-5.1); Sodium 136 mEq/L (136-145); Total Protein 6.5 g/dL (6.4-8.9); eGFR For African Americans > 60 (> 60); eGFR For Non-African Americans > 60 (> 60)
[2019-04-24] MEDS: Ketorolac 30 MG/ML VIAL IVP PRN ×2 (05:42→14:59)
[2019-04-24] MEDS: cefTRIAXone 2,000 MG in Water for inj. (sterile) 20 ML IVP SCH (08:15)
[2019-04-24] MEDS: 0.9 % Sodium Chloride 1,000 ML IVC SCH (08:17)
[2019-04-24] MEDS: Lisinopril 20 MG TABLET PO SCH (10:44)
--- NOTE | 2019-04-24 11:05 | Internal Med Progress Note ---
Hospitalist Progress Note - Encounter Date of Encounter: 04/24/19 Time of Encounter: 11:03 - Subjective Interval History: She was seen and examined at bedside. Patient reports her abdominal pain on the right side has improved since yesterday. Patient reports overnight episode of fever and chills. Patient denies any nausea, and vomiting. - Exam Vitals: Temp Pulse Resp BP Pulse Ox 97.6 F 96 16 146/100 98 04/24/19 08:31 04/24/19 08:31 04/24/19 08:31 04/24/19 08:31 04/24/19 08:31 Exam: General: A & O 3, In no acute distress HENNT: PERRLA. Head atraumatic and makes supple CVS S1 and S2 regular, no murmur RS: Clear to air entry bilaterally, no wheeze, no crackles Abdomen: [id number] tenderness on the right upper quadrant. Extremities: No cyanosis, clubbing, and edema Neurology: Cranial II-XII normal. Motor strength 5/5 bilaterally. Sensation intact - Assessment and Plan (1) Pyelonephritis Current Visit: Yes Status: Acute Assessment and Plan: We will continue IV hydration, IV Rocephin, and IV pain medication. Urine culture final report to Escherichia coli, which is sensitive to Rocephin. We will continue Rocephin. Patient's blood culture collected on 04/21/2019 grew Escherichia coli which was also sensitive to Rocephin. We will continue IV Rocephin 2 gm daily. Plan for discharge once patient is fever free (2) Sepsis Current Visit: Yes Status: Acute Assessment and Plan: - Continue IV fluid hydration - Treating pyelonephritis as above - Blood culture X 2 on 04/21/19 showed E coli sensitive to Rocephin - Blood culture X 2 on 04/22/19 and negative on preliminary report. Will await final report (3) RUQ abdominal pain Current Visit: Yes Status: Acute Assessment and Plan: Most likely due to right-sided pyelonephritis. We will continue to monitor. Continue pain management (4) Elevated bilirubin Current Visit: Yes Status: Acute Assessment and Plan: Patient also complaining of right upper quadrant pain. Ultrasound abdomen within normal limit. (5) DVT prophylaxis Current Visit: Yes Status: Acute Assessment and Plan: SCDs - Time Spent with Patient Total time spent is greater than 50% in coordination of care (as documented) at patient's floor/unit and/or counseling patient: 25 - 35 minutes Plan of Care Discussed with: patient Internal Medicine: Result - Labs CBC & Chem 7: 04/24/19 03:07 04/24/19 03:07 Labs: Short CBC 04/24/19 Range/Units 03:07 WBC 10.6 (4.3-11.1) K/mcL Hgb 10.7 L (11.5-15.4) g/dL Hct 31.4 L (35.3-44.9) % Plt Count 195 (140-400) K/mcL Neutrophils # 7.9 (1.6-8.9) K/mcL BMP 04/24/19 03:07 Sodium 136 Potassium 3.2 L Chloride 106 Carbon Dioxide 22 L BUN 7 Creatinine 0.75 Glucose 105 Calcium 8.5 L Liver Function 04/24/19 Range/Units 03:07 Total Bilirubin 0.7 (0.3-1.0) mg/dL AST 14 (13-39) Units/L ALT 17 (7-52) Units/L Alkaline Phosphatase 76 (34-104) Units/L Albumin 3.4 L (3.5-5.7) g/dL - ABG Interpretation ABG results: PT/INR, D-dimer PT 14.5 Seconds (9.4-12.1) H 04/21/19 19:50 Consult Discharge Plan - Plan Referrals: Larissa Calix, HOSPICE PATIENT CARE SECRETARY [Primary Care Provider] - (2) Sepsis Qualifiers: Sepsis type: sepsis due to unspecified organism Sepsis acute organ dysfunction status: without acute organ dysfunction Qualified Code(s): A41.9 - Sepsis, unspecified organism
[2019-04-25 04:37] LABS: Basophils % 0.3 %; Eosinophils # 0.1 K/mcL (0.0-0.6); Eosinophils % 0.9 %; Hematocrit 29.7 % (35.3-44.9); Hemoglobin 10.3 g/dL (11.5-15.4); Immature Granulocytes % 0.8 % (0-4); Lymphocytes # 2.2 K/mcL (0.6-4.6); Lymphocytes % 23.8 %; Mean Corpuscular HGB Conc 34.7 g/dL (31.6-35.5); Mean Corpuscular Hemoglobin 29.9 pg (28.0-33.3); Mean Corpuscular Volume 86.3 fL (83.0-100.0); Mean Platelet Volume 9.1 fL (9.4-12.4); Monocytes # 1.6 K/mcL (0.0-1.3); Monocytes % 17.3 %; Neutrophils # 5.3 K/mcL (1.6-8.9); Platelet Count 183 K/mcL (140-400); Red Blood Count 3.44 M/mcL (3.82-4.97); Red Cell Distribution Width 12.8 % (11.5-14.5); Segmented Neutrophils % 56.9 %; White Blood Count 9.3 K/mcL (4.3-11.1)
[2019-04-25 04:57] LABS: BUN/Creatinine Ratio 12 (6-26); Blood Urea Nitrogen 7 mg/dL (6-20); Calcium 7.9 mg/dL (8.6-10.3); Carbon Dioxide 22 mEq/L (23-29); Chloride 108 mEq/L (98-107); Glucose 89 mg/dL (70-105); Osmolality,Calculated 281 (280-300); Potassium 3.1 mEq/L (3.5-5.1); Sodium 137 mEq/L (136-145); eGFR For African Americans > 60 (> 60); eGFR For Non-African Americans > 60 (> 60)
[2019-04-25] MEDS: 0.9 % Sodium Chloride 1,000 ML IVC SCH (05:17)
[2019-04-25 06:31] VITALS: BP 134/86
--- NOTE | 2019-04-25 08:07 | Discharge Summary ---
- NOTES TO OUTPATIENT PROVIDER Notes to Outpatient Provider: Pt as hospitalized for pyelonephritis. Patient's urine culture and blood culture grew Escherichia coli which was sensitive to Rocephin and levofloxacin. Patient received Rocephin while inpatient. Patient was discharged on levofloxacin for 10 more additional days. She will follow up with primary care provider within one week. Follow-up on blood culture collected on 04/22/2019. Orders not resulted at time of discharge: Pending orders 04/22/19 12:13 Blood Culture [Culture,Blood] [] Routine Date of Encounter: 04/25/19 Time of Encounter: 08:03 - Discharge Diagnosis (1) Pyelonephritis Priority: Primary Status: Acute (2) Sepsis Priority: Secondary Status: Acute Qualifiers: Sepsis type: sepsis due to unspecified organism Sepsis acute organ dysfunction status: without acute organ dysfunction Qualified Code(s): A41.9 - Sepsis, unspecified organism (3) RUQ abdominal pain Priority: Secondary Status: Acute (4) Elevated bilirubin Priority: Secondary Status: Acute (5) DVT prophylaxis Priority: Secondary Status: Acute Hospital course: Ms. Mcfarlane is a 23 year old female was hospitalized for pyelonephritis. Neil larson's urine culture and blood culture grew Escherichia coli which was sensitive to Rocephin and levofloxacin. Patient received Rocephin while inpatient. Patient was discharged on levofloxacin for 10 more additional days. She will follow up with primary care provider within one week. Discharge discussed with: patient, family, nurse - Time Spent with Patient Total time spent providing and/or coordinating discharge services: 35 Time spent: Greater than 30 minutes - Discharge Medications Prescriptions: New Levofloxacin [Levaquin] 750 mg PO DAILY 10 Days #10 tablet Acetaminophen [Tylenol] 650 mg PO Q4HR PRN tablet PRN Reason: Fever Continued Lisinopril [Zestril] 20 mg PO DAILY Atorvastatin [Lipitor] 10 mg PO DAILY Butalb/Acetaminophen/Caffeine [Fioricet 50-300-40 mg Capsule] 1 each PO Q8H PRN PRN Reason: Migraine Headache hydroCHLOROthiazide [Hydrochlorothiazide] 25 mg PO DAILY Home Medications: Atorvastatin [Lipitor] 10 mg PO DAILY 02/18/18 [History] Lisinopril [Zestril] 20 mg PO DAILY 02/18/18 [History] Butalb/Acetaminophen/Caffeine [Fioricet 50-300-40 mg Capsule] 1 each PO Q8H PRN 04/21/19 [History] hydroCHLOROthiazide [Hydrochlorothiazide] 25 mg PO DAILY 04/21/19 [History] Acetaminophen [Tylenol] 650 mg PO Q4HR PRN tablet 04/25/19 [Rx] Levofloxacin [Levaquin] 750 mg PO DAILY 10 Days #10 tablet 04/25/19 [Rx] Levofloxacin [Levaquin] 750 mg PO DAILY 10 Days #10 tablet 04/25/19 [Rx] Allergies/Adverse Reactions: Allergy/AdvReac Type Severity Reaction Status Date / Time montelukast [From Singulair] Allergy Hives Verified 04/21/19 19:46 Date of admission: 04/23/19 12:47 Primary care physician: Larissa Calix CNP Discharging clinician: Lamine Go - Constitutional Vitals: Temp Pulse Resp BP Pulse Ox 98.3 F 96 15 134/86 93 04/25/19 06:29 04/25/19 06:29 04/25/19 06:29 04/25/19 06:29 04/25/19 06:29 General appearance: Present: cooperative, A&O X 3, pleasant, no acute distress, answers questions appropriately Exam: General: A & O 3, In no acute distress HENNT: PERRLA. Head atraumatic and makes supple CVS S1 and S2 regular, no murmur RS: Clear to air entry bilaterally, no wheeze, no crackles Abdomen: [id number] tenderness on the right upper quadrant. Extremities: No cyanosis, clubbing, and edema Neurology: Cranial II-XII normal. Motor strength 5/5 bilaterally. Sensation intact - Patient Status Disposition: Home, Self-Care Condition: Good Overall status at discharge: patient is progressing back to baseline - Discharge Instructions Follow Up With: Larissa Calix CNP [Primary Care Provider] - - Diet and Activity Activity: increase activity as tolerated Diet: low salt diet
[2019-04-25] MEDS: cefTRIAXone 2,000 MG in Water for inj. (sterile) 20 ML IVP SCH (09:02)
[2019-04-25] MEDS: Lisinopril 20 MG TABLET PO SCH (09:02)
== END 2019-04-25 11:18 | disposition home or self-care (01) | DRG 872 ==
LOC: EMEROOARM 19:29 → 3ANU 19:29 → SUATTDRO 21:24 → 3ANU 21:48
PROVIDERS: ADMIT Family Medicine; ATTEND Family Medicine